=== PATIENT | female | born 1945 | race Asian ===

== ENCOUNTER 2017-07-20 11:52 | Emergency (ER) | payer OTHER ==
[~2017-07-20] VITALS: Ht 157.5 cm; Wt 66.4 kg
[2017-07-20] MEDS ORDERED: FURO20TA4 PO (12:06)
[2017-07-20] MEDS ORDERED: ASPI-1188 PO (12:06)
[2017-07-20] MEDS ORDERED: MULT1TAB69 PO (12:06)
[2017-07-20] MEDS ORDERED: CALC1TAB86 PO (12:06)
[2017-07-20] MEDS ORDERED: METO-408 PO (12:06)
[2017-07-20] MEDS ORDERED: LORA10TA7 PO (12:06)
[2017-07-20] MEDS ORDERED: OXYC5TAB3 PO (12:06)
[2017-07-20] MEDS ORDERED: SIMV10TA6 PO (12:06)
[2017-07-20] MEDS ORDERED: POTA8CAP17 PO (12:06)
[2017-07-20] MEDS ORDERED: CARISOPRODOL 350 MG TABLET PO ONE (13:15)
[2017-07-20] MEDS ORDERED: HYDROCODONE/ACETAMINOPHEN 5-325 MG TABLET PO ONE (15:00)
[2017-07-20 16:20] VITALS: BP 148/79
== END 2017-07-20 16:24 | disposition home or self-care (01) ==
LOC: EMS 11:52
DX: S13.4XXA Sprain of ligaments of cervical spine, initial encounter (principal); M62.838 Other muscle spasm; E78.00 Pure hypercholesterolemia, unspecified; I10 Essential (primary) hypertension; X58.XXXA Exposure to other specified factors, initial encounter; Y93.E1 Activity, personal bathing and showering; Y92.89 Other specified places as the place of occurrence of the external cause; Y99.8 Other external cause status
CPT/HCPCS: 99283